=== PATIENT | male | born 1955 | race Caucasian/White ===

== ENCOUNTER → 2017-02-18 | Day surgery (SDC) | payer OTHER ==
[~2017-02-18] MED LIST: ALEVE220 M1 PO; COLESTID PO; DISCONTINUED MED PO; FENOFIBRATE160 MG PO; IBUPROFEN PO; LIPITOR20 MG PO; ZITHROMAX PO; ZYRTEC PO
--- NOTE | ~2017-02-18 | OR ---
Unit #: [id number] #: [id number] Patient: HENRIQUE CONTRERAS JR [id number] [address] [place], [place] [address] [id number] MR#: [id number] NAME: HENRIQUE CONTRERAS JR ROOM: Date of Procedure: 02/18/2017 Admission Date: 02/18/2017 Surgeon: Duong Anaya M.D. : 1955 Attending Physician: Duong Anaya M.D. Primary Care Physician: Rod MarxP.R.NMaxwell OPERATIVE REPORT PREOPERATIVE DIAGNOSES Hematochezia, Hemoccult-positive stools. PROCEDURES PERFORMED Colonoscopy up to cecum and terminal ileum with excellent preparation and good visualization. POSTOPERATIVE DIAGNOSES 1. The patient has small internal hemorrhoids. These were too small to require any hemorrhoidal banding or ligation. 2. Scant diverticulosis in the right colon. 3. Rest of the examination up to cecum and terminal ileum was normal. The quality of the prep was excellent. RECOMMENDATIONS The patient is advised to use Anusol-HC suppositories on a p.r.n. basis. He probably will need once in a few months in case of any noticeable bleeding. Reassurance is in order. He needs a repeat examination in 10 years. SEDATION USED MAC. DESCRIPTION OF PROCEDURE Following detailed explanation of the potential risks and complications of a colonoscopy, namely perforation, bleeding, and complications related to sedation, the patient was brought to GI lab and laid in the left lateral decubitus position. A digital rectal examination was performed, which was normal. Lubricated tip of the Olympus video colonoscope was inserted through the anus and advanced under direct vision. The scope was advanced and passed up to sigmoid into descending colon. No diverticula were seen this area. The scope tip was then navigated all the way up to cecum with visualization of the ileocecal valve and the appendiceal orifice. Preparation was excellent with good visualization and photodocumentation was obtained. Last several inches of the terminal ileum also visualized and appeared normal. Successive segments of the colonic mucosa were examined upon withdrawal. Couple diverticula were seen in the right colon. The mucosa throughout however was normal. There being no polyps or angiodysplasias. The patient was noted to have small internal hemorrhoids at the anal verge seen on antegrade examination as well as on retroflexion. These were too small to require band ligation. The scope was then withdrawn. The patient returned to the recovery area. He Unit #: [id number] #: [id number] Patient: HENRIQUE CONTRERAS JR tolerated the procedure without any postprocedure complications. Dictated by... Pranav Wilkes/janeth TD: 02/18/2017 11:06 JOB #: [id number] CC: . OPERATIVE REPORT Page 1 of 1 X Duong Anaya MD PROCEDURE OPERATIVE NOTE
== END | disposition home or self-care (01) ==
LOC: COPS 07:32
DX: K92.1 Melena (principal); K64.8 Other hemorrhoids; K57.30 Diverticulosis of large intestine without perforation or abscess without bleeding; Z87.891 Personal history of nicotine dependence; Z88.0 Allergy status to penicillin; Z96.651 Presence of right artificial knee joint; Z79.899 Other long term (current) drug therapy
CPT/HCPCS: J2250